=== PATIENT | male | born 1975 | race Caucasian/White ===

== ENCOUNTER 2017-08-10 12:48 | Inpatient (IN) | payer BC, SELFPAY ==
[2017-08-10] VITALS (14 sets, daily range): BP systolic 112–149; BP diastolic 60–90; PULSE 105–116; RESP 14–20; TEMP 36.5–37.7; O2SAT 96–99; BMI 40.1; BMI 39.8
--- NOTE | 2017-08-10 13:36 | RAD_ITS ---
STUDY: X-RAY CHEST REASON FOR EXAM: Male, 42 years old. Weakness. Shortness of breath. Headaches. TECHNIQUE: Single AP portable view of the chest. COMPARISON: None. FINDINGS: EKG electrodes are seen. The lungs are clear and expanded. There is no demonstrated pleural abnormality. Normal size heart. Normal mediastinum and yoon. Normal visualized pulmonary arteries. Normal visualized aortic arch and descending thoracic aorta. Normal visualized thoracic spine. Normal visualized ribs, clavicles, and shoulders. There is no demonstrated abnormality of the visualized soft tissue structures of the upper abdomen. RAD/Chest 1 View (Portable) IMPRESSION: Normal x-ray examination of the chest. Electronically Signed: Raymundo Sanchez MD at 14:05 EST Tel [phone], Service support ,
--- NOTE | 2017-08-10 13:39 | EKG12_ITS ---
Test Reason : PALPITATIONS Blood Pressure : / mmHG Vent. Rate : 105 BPM Atrial Rate : 105 BPM P-R Int : 180 ms QRS Dur : 112 ms QT Int : 366 ms P-R-T Axes : 056 035 026 degrees QTc Int : 483 ms Sinus tachycardia Incomplete left bundle branch block Borderline ECG Confirmed by JOCELYN HODGE ([id number]), newspaper editor managing TOM BERANL ([id number] on 08/13/2017 1:25:49 PM Referred By: GENOVEVA Confirmed By:JOCELYN HODGE
--- NOTE | 2017-08-10 13:57 | NURSING ---
NO OLD EKGS
--- NOTE | 2017-08-10 14:43 | NURSING ---
NEEDS CBCD AND CHEMISTRIES REDRAWN
[2017-08-10] MEDS: 0.9% Normal Saline 1,000 ML 1000 ML IV ×2 (14:45)
[2017-08-10 14:59] LABS: Anion Gap 20 (5-15); BUN 14 mg/dL (7-18); BUN/Creat Ratio 10.3 RATIO (10-20); Calcium,Total 7.9 mg/dL (8.5-10.1); Chloride 100 mmol/L (98-107); Creatinine, Serum 1.36 mg/dL (0.70-1.30); EST Glomerular Filtration Rate 61 mL/min (>60); Est Glom Filt Rate - Afr Amer 74 mL/min (>60); Estimated Creatinine Clearance 66.83 ml/min; Glucose 453 mg/dL (70-110); Potassium 4.8 mmol/L (3.5-5.1); Sodium Level 123 mmol/L (136-145)
[2017-08-10 15:26] LABS: Blood Gas Specimen Type VEN; O2 Delivery Device Room Air; Time Given 1518; VBG BASE EXCESS -26 mmol/L (-1.0-3.5); VBG Bicarbonate 5 mmol/L (22-26); VBG Oxygen Content 5 mmol/L (23-33); VBG PO2 70 mmHg (25-40); VBG SO2 85 % (50-70); VBG pCO2 16.3 mmHg (41-51); VBG pH 7.05 (7.32-7.42)
[2017-08-10 15:44] LABS: Hematocrit 40.5 % (40-54); Hemoglobin 13.9 g/dl (13.0-16.5); Mean Corp Hgb Conc 34.3 g/gl (32-36); Mean Corpuscular Hgb 28.6 pg (27.0-32.0); Mean Corpuscular Volume 83.3 fL (80-94); Mean Platelet Vol. 8.9 fl (6.2-12.0); Platelet Count 177 K/mm3 (150-450); RBC Distribution Width CV 13.9 % (11.6-14.6); RBC Distribution Width SD 41.7 fl (35.1-43.9); Red Blood Count 4.86 M/mm3 (4.6-6.2); White Blood Count 10.1 K/mm3 (4.4-11.0)
[2017-08-10 15:48] LABS: Differential Indicated MANUAL DIFF; POSITIVE COUNT YES; POSITIVE DIFFERENTIAL NO; POSITIVE MORPHOLOGY YES
[2017-08-10 15:50] LABS: Phosphorus 2.3 mg/dL (2.5-4.9)
--- NOTE | 2017-08-10 15:54 | ED.VISSUMM ---
- ER Visit Summary Date of Service: 08/10/17 Chief Complaint: Dysuria and myalgias History of Present Illness: The patient is a 42 M with no primary care physician. He reports that he ran out of his metformin and glimepiride last week. States that 2 days ago he began not feeling well. He has been short of breath and had palpitations. He is been nauseated and vomited twice. He denies any diarrhea. He has had dysuria without frequency. He has diffuse myalgias. He has a headache that stated 10 severity. Has a history of similar headaches. Reports that he is pain-free currently and that is 10 out of 10 at worst. Also complains of generalized weakness. Physical Examination: Vitals: Stable. Afebrile. General: Well-nourished and well-developed. Head: Normocephalic atraumatic. Neck: Supple, no lymphadenopathy. No JVD. Nontender. Cardiovascular: Regular rate and rhythm. No murmurs. Respiratory: No respiratory distress. Clear to auscultation bilaterally. Abdominal: Soft, mild diffuse tenderness to palpation, nondistended, normal bowel sounds. No guarding, rebound, or peritoneal signs. Back: Nontender. Extremities: Nontender, no edema. Skin: Normal color, no rash. Neurologic: Alert and oriented ?3. Cranial nerves II through XII are intact. Normal strength and sensation. Psych: Normal affect. Test Results: CBC is normal. Chem-7 is marked for sodium 123, CO2 of 3, glucose 453, BUN 20, creatinine 1.36, calcium 7.9. Corrected sodium is 131. Troponin is negative. Phosphorus is 2.3. Magnesium is 2.0. Venous blood gas shows pH is 7.05. He has large serum ketones. Emergency Department Course and Treatment: Patient was given 2 L of normal saline. He was then started on insulin drip. Treatment Plan: Patient will be admitted to the hospital for further evaluation and treatment. Disposition: Admitted in improved condition. Impression: 1. DKA. 2. Critical care time 30 minutes. This note was generated with [employer] dictation software. It may contain incorrect words, spelling, and punctuation that were not noted in review of the chart prior to signing ED Disposition - Plan for ED Patient: Chief Complaint: General Illness Referrals: Care Physician,No Primary [Primary Care Provider] -
[2017-08-10 15:56] LABS: Bedside Glucose 399 mg/dL (70-110)
[2017-08-10 15:57] LABS: Bacteria 0 SEEN /hpf (None Seen); Mucous, Urine 0 SEEN /hpf (<or=2+); White Blood Cells 0 SEEN /hpf (0-5)
[2017-08-10 16:09] LABS: Color, Urine Yellow (Yellow); Glucose, Dipstick 1000 mg/dl (Normal); Leukocyte Esterase-Dipstick Negative /ul (Negative); Nitrite-Dipstick Negative (Negative); Occult Blood-Urine 25 /ul (Negative); Protein-Dipstick 30 mg/dl (Negative); Urine Bilirubin Dipstick Negative (Negative); Urine Clarity Clear (Clear); Urine Urobilinogen Normal (Normal)
[2017-08-10 16:19] LABS: Ketone-Dipstick 150 mg/dl (Negative)
[2017-08-10 16:25] LABS: Hyaline Cast 0-5 SEEN /lpf (0-5); Red Blood Cells-Urine 0-5 SEEN /hpf (0-5); Squamous Epithelial Cells - UA 0-5 SEEN /hpf (0-5)
[2017-08-10 16:41] LABS: Basophil 1 % (0-1); Eosinophil 1 % (0-5); Lymphocyte 10 % (19-41); Monocyte 3 % (0-10); Neutrophil-Band 5 % (0-5); Neutrophil-Segmented 80 % (47-70); Red Cell Morphology NORM C+C NORMAL (NORM C&C); Total Cells Counted 100 (MANUAL DIFF)
[2017-08-10 16:42] LABS: Platelet Estimate ADEQUATE (ADEQ)
--- NOTE | 2017-08-10 17:10 | NURSING ---
ICU DKA LAUREN
--- NOTE | 2017-08-10 17:20 | NURSING ---
ICU 5
[2017-08-10 17:41] LABS: Bedside Glucose 335 mg/dL (70-110)
--- NOTE | 2017-08-10 18:12 | PCM.HP.STD ---
Problem List (1) DKA (diabetic ketoacidoses) Status: Acute (2) Diabetes mellitus type 2 in obese Status: Acute History of Present Illness Date of Admission: 08/10/17 Chief Complaint: Ran out of medication now complaining of generalized nausea and vomiting consistent with DKA The patient is a 42 year old M with history of type 2 diabetes mellitus on metformin and glimepiride, ran out last week came to ER with generalized weakness, nausea and vomiting twice for last 2 days. Patient is having aches and pain and heartburn/acid reflux. He also has severe headache but denies abdominal pain. He never had DKA. In ER, initial lab work was consistent with DKA. BMP shows CO2 3, anion gap 20, creatinine 1.36 and venous blood gas shows pH 7.05, PCO2 mix 16. UA is negative for pyuria, nitrite or leukocyte esterase. Patient received a liter of normal saline bolus in the ER and is on insulin drip. [] Past Medical History Allergies alcohol Allergy (Verified 08/10/17 12:54) Unknown Home Medications: Ambulatory Orders Medication Instructions Recorded Glimepiride [Amaryl] 2 mg PO BID 08/10/17 Metformin HCl 1,000 mg PO BID 08/10/17 Smoking Status: Never smoker - *Family History Paternal History Items: No pertinent history Review of Systems Constitutional: Denies: Chills, Fever, Weight Change HEENT: Denies: Head Aches, Sinus Congestion, Sinus Drainage Cardiovascular: Denies: Chest Pain, Palpitations Respiratory: Denies: Cough, Shortness of breath at rest, Sputum production Gastrointestinal: Denies: Abdominal Pain, Nausea, Vomiting Genitourinary: Denies: Dysuria Musculoskeletal: Denies: Joint Pain, Joint Tenderness Skin: Denies: Rash, Wounds Neurological: Denies: Numbness, Tingling, Focal weakness Psychiatric: Denies: Anxiety, Depression, Homicidal Ideations, Suicidal Ideations Hematologic/ Lymphatic: Denies: Easy Bruising, Easy Bleeding VTE Information - Inpt Only VTE Present on Admission: No VTE Mechan Device Prophylaxis: SCD's VTE Pharm Prophylaxis ordered?: Yes Patient Problems: Active and Suspected Problems DKA (diabetic ketoacidoses) (Acute) Diabetes mellitus type 2 in obese (Acute) - Physical Exam General: Alert, Oriented x3, Cooperative HEENT: Atraumatic, PERRLA, EOMI, Normocephalic Oral: Dry Mucosa Neck: Supple, No JVD, Negative Carotid Bruits Lungs: Clear to auscultation, No rhonchi, No wheeze, No rales, Diminished Cardiovascular: Regular rate, Regular Rhythm, Normal S1, Normal S2, No murmurs Abdomen: Bowel Sounds Present, Soft, Non Tender, Non-Distended Extremities: No edema, Capillary Refill Less than 3 Seconds Skin: No rashes, No breakdown Musculoskeletal: No Tenderness to Palpation of Joints or Extremities Neurological: Cranial nerves II-XII grossly intact, Neuro grossly intact Psych/Mental Status: Normal Affect, Appropriate Vital Signs Temp Pulse Resp BP Pulse Ox 97.7 F L 111 H 19 H 149/77 H 97 08/10/17 12:51 08/10/17 17:19 08/10/17 17:19 08/10/17 17:19 08/10/17 17:19 Finger Stick Blood Glucose 343 POC Glucose 08/10/17 17:25 POC Glucose 335 H Assessment/Plan Active and Suspected Problems DKA (diabetic ketoacidoses) (Acute) Diabetes mellitus type 2 in obese (Acute) The patient is a 42 year old M with history of type 2 diabetes mellitus on metformin and glimepiride, ran out last week came to ER with generalized weakness, nausea and vomiting twice for last 2 days. Patient is having aches and pain and heartburn/acid reflux. He also has severe headache but denies abdominal pain. He never had DKA. In ER, initial lab work was consistent with DKA. BMP shows CO2 3, anion gap 20, creatinine 1.36 and venous blood gas shows pH 7.05, PCO2 mix 16. UA is negative for pyuria, nitrite or leukocyte esterase. Patient received a liter of normal saline bolus in the ER and is on insulin drip. 1. DKA secondary to noncompliance/ran out of medication: Patient is being admitted in ICU. On DKA protocol with BMP every 4 hourly, repeat venous blood gas, IV fluid normal saline bolus and electrolyte replacement as per protocol. Large serum acetone. Serum estrone tomorrow morning. 2. Mixed acid base disorder with severe metabolic acidosis with high anion gap and respiratory acidosis: Venous blood gas shows 7.05, PCO2 mix 16. If repeat venous blood gas does not improve, need Na bicarb 50 mEq IV push. Consult audio video repairer. For now IV fluid normal saline bolus and insulin drip. 3. Heartburn/acid reflux with atypical chest pain: EKG was done in the ER shows sinus tachycardia at 105 bpm with incomplete left bundle branch block. First troponin is negative. Serial troponin enzymes. Repeat EKG. On IV Protonix 40 mg daily. Type 2 diabetes mellitus, morbid obesity: Patient denies history of sleep apnea or snoring. BMI is 40.1 KG/meter square. Diet counseling. Deputy Commissioner consult. A1c tomorrow a.m. DVT prophylaxis: On Lovenox 40 mg subcu daily and bilateral SCDs. Critical time spent about 45 minutes. This note was generated with [email or web address] dictation software. Every effort was made to ensure accuracy, however computerized asset specialist mistakes may persist. Code Visit Inpatient E&M: 54018 Subs Hosp L3 Procedures: 59638 Critial Care 1st Hr
--- NOTE | 2017-08-10 18:26 | HP.PCM_ITS ---
Problem List (1) DKA (diabetic ketoacidoses) Status: Acute (2) Diabetes mellitus type 2 in obese Status: Acute History of Present Illness Date of Admission: 08/10/17 Chief Complaint: Ran out of medication now complaining of generalized nausea and vomiting consistent with DKA The patient is a 42 year old M with history of type 2 diabetes mellitus on metformin and glimepiride, ran out last week came to ER with generalized weakness, nausea and vomiting twice for last 2 days. Patient is having aches and pain and heartburn/acid reflux. He also has severe headache but denies abdominal pain. He never had DKA. In ER, initial lab work was consistent with DKA. BMP shows CO2 3, anion gap 20 , creatinine 1.36 and venous blood gas shows pH 7.05, PCO2 mix 16. UA is negative for pyuria, nitrite or leukocyte esterase. Patient received a liter of normal saline bolus in the ER and is on insulin drip. [] Past Medical History Allergies alcohol Allergy (Verified 08/10/17 12:54) Unknown Home Medications: Ambulatory Orders Medication Instructions Recorded Glimepiride [Amaryl] 2 mg PO BID 08/10/17 Metformin HCl 1,000 mg PO BID 08/10/17 Smoking Status: Never smoker - *Family History Paternal History Items: No pertinent history Review of Systems Constitutional: Denies: Chills, Fever, Weight Change HEENT: Denies: Head Aches, Sinus Congestion, Sinus Drainage Cardiovascular: Denies: Chest Pain, Palpitations Respiratory: Denies: Cough, Shortness of breath at rest, Sputum production Gastrointestinal: Denies: Abdominal Pain, Nausea, Vomiting Genitourinary: Denies: Dysuria Musculoskeletal: Denies: Joint Pain, Joint Tenderness Skin: Denies: Rash, Wounds Neurological: Denies: Numbness, Tingling, Focal weakness Psychiatric: Denies: Anxiety, Depression, Homicidal Ideations, Suicidal Ideations Hematologic/ Lymphatic: Denies: Easy Bruising, Easy Bleeding VTE Information - Inpt Only VTE Present on Admission: No VTE Mechan Device Prophylaxis: SCD's VTE Pharm Prophylaxis ordered?: Yes Patient Problems: Active and Suspected Problems DKA (diabetic ketoacidoses) (Acute) Diabetes mellitus type 2 in obese (Acute) - Physical Exam General: Alert, Oriented x3, Cooperative HEENT: Atraumatic, PERRLA, EOMI, Normocephalic Oral: Dry Mucosa Neck: Supple, No JVD, Negative Carotid Bruits Lungs: Clear to auscultation, No rhonchi, No wheeze, No rales, Diminished Cardiovascular: Regular rate, Regular Rhythm, Normal S1, Normal S2, No murmurs Abdomen: Bowel Sounds Present, Soft, Non Tender, Non-Distended Extremities: No edema, Capillary Refill Less than 3 Seconds Skin: No rashes, No breakdown Musculoskeletal: No Tenderness to Palpation of Joints or Extremities Neurological: Cranial nerves II-XII grossly intact, Neuro grossly intact Psych/Mental Status: Normal Affect, Appropriate Vital Signs Temp Pulse Resp BP Pulse Ox 97.7 F L 111 H 19 H 149/77 H 97 08/10/17 12:51 08/10/17 17:19 08/10/17 17:19 08/10/17 17:19 08/10/17 17:19 Finger Stick Blood Glucose 343 POC Glucose 08/10/17 17:25 POC Glucose 335 H Assessment/Plan Active and Suspected Problems DKA (diabetic ketoacidoses) (Acute) Diabetes mellitus type 2 in obese (Acute) The patient is a 42 year old M with history of type 2 diabetes mellitus on metformin and glimepiride, ran out last week came to ER with generalized weakness, nausea and vomiting twice for last 2 days. Patient is having aches and pain and heartburn/acid reflux. He also has severe headache but denies abdominal pain. He never had DKA. In ER, initial lab work was consistent with DKA. BMP shows CO2 3, anion gap 20 , creatinine 1.36 and venous blood gas shows pH 7.05, PCO2 mix 16. UA is negative for pyuria, nitrite or leukocyte esterase. Patient received a liter of normal saline bolus in the ER and is on insulin drip. 1. DKA secondary to noncompliance/ran out of medication: Patient is being admitted in ICU. On DKA protocol with BMP every 4 hourly, repeat venous blood gas, IV fluid normal saline bolus and electrolyte replacement as per protocol. Large serum acetone. Serum estrone tomorrow morning. 2. Mixed acid base disorder with severe metabolic acidosis with high anion gap and respiratory acidosis: Venous blood gas shows 7.05, PCO2 mix 16. If repeat venous blood gas does not improve, need Na bicarb 50 mEq IV push. Consult [employer]. For now IV fluid normal saline bolus and insulin drip. 3. Heartburn/acid reflux with atypical chest pain: EKG was done in the ER shows sinus tachycardia at 105 bpm with incomplete left bundle branch block. First troponin is negative. Serial troponin enzymes. Repeat EKG. On IV Protonix 40 mg daily. Type 2 diabetes mellitus, morbid obesity: Patient denies history of sleep apnea or snoring. BMI is 40.1 KG/meter square. Diet counseling. Sheet Rock Taper Helper consult. A1c tomorrow a.m. DVT prophylaxis: On Lovenox 40 mg subcu daily and bilateral SCDs. Critical time spent about 45 minutes. This note was generated with [employer] dictation software. Every effort was made to ensure accuracy, however computerized plant custodian mistakes may persist. Code Visit Inpatient E&M: 97474 Subs Hosp L3 Procedures: 54755 Critial Care 1st Hr
[2017-08-10] MEDS: 0.9% Normal Saline 1,000 ML 250 ML IV (19:00)
--- NOTE | 2017-08-10 19:20 | NURSING ---
Insulin gtt running at 5.6 u/hr upon first assessment. Bedside report received from previous shift RN stating insulin gtt should be running at 5.6u/hr down 4u/hr from previous setting pre protocol.
[2017-08-10 20:07] LABS: Bedside Glucose 237 mg/dL (70-110)
[2017-08-10 20:07] LABS: Bedside Glucose 274 mg/dL (70-110)
--- NOTE | 2017-08-10 21:12 | PCM.OP.BLANK ---
Problem List (1) DKA (diabetic ketoacidoses) Status: Acute (2) Diabetes mellitus type 2 in obese Status: Acute (3) Poor peripheral vein access Status: Acute Operative Report Date of Procedure: 08/10/17 Right femoral central venous triple-lumen catheter insertion Indication Poor peripheral vein access Nurse called me as the nurses cannot draw blood and insufficient only one peripheral vein access or IV fluid. Need 1 more venous access. Procedure With informed consent from the patient the procedure was explained including risk and benefit. Under sterilized precaution, first right neck region was sterilized and draped. As the patient is a heavy built, morbid obesity was unable to get right subclavian access in 3 attempts so it was QUIT. No hematoma/bleeding. Right groin region was sterilized and draped. Right femoral region was numbed with lidocaine 2%. Right femoral vein was accessed in 1 attempt. With linear technique, the guidewire, right femoral vein triple-lumen catheter was inserted. Catheter was secured and dressed. Good venous return and blood flow from all 3 ports. Dressing was completed. No hematoma. The right femoral central venous catheter is ready to be used. Code Visit Procedures: 60484 Insert Non-tunnel CV Cath
[2017-08-10 21:16] LABS: M R Staph aureus DNA By PCR Negative (Negative); Probe Check PASS; Specimen Processing Control PASS
[2017-08-10 22:15] LABS: Osmolality, Serum 296 mOsm/KG (275-295)
[2017-08-10 22:34] LABS: Alanine Aminotransfer ALT/SGPT 25 U/L (12-78); Alkaline Phosphatase 89 U/L (45-117); Anion Gap 16 (5-15); BUN 13 mg/dL (7-18); BUN/Creat Ratio 11.2 RATIO (10-20); Bilirubin, Direct < 0.05 mg/dL (0.00-0.30); Calcium,Total 7.6 mg/dL (8.5-10.1); Chloride 110 mmol/L (98-107); Creatinine, Serum 1.16 mg/dL (0.70-1.30); EST Glomerular Filtration Rate 74 mL/min (>60); Est Glom Filt Rate - Afr Amer 89 mL/min (>60); Estimated Creatinine Clearance 78.35 ml/min; Globulin 3.6 g/dL (2.2-4.2); Glucose 200 mg/dL (70-110); Magnesium 1.8 mg/dL (1.6-2.6); Protein, Total 6.6 g/dL (6.4-8.2); Sodium Level 137 mmol/L (136-145)
[2017-08-10 22:36] LABS: AST(SGOT) 12 U/L (15-37)
[2017-08-10 23:21] LABS: Bedside Glucose 189 mg/dL (70-110)
[2017-08-10 23:21] LABS: Bedside Glucose 216 mg/dL (70-110)
[2017-08-11] VITALS (16 sets, daily range): BP systolic 104–133; BP diastolic 58–74; PULSE 90–111; RESP 14–20; TEMP 36.9–37.2; O2SAT 93–100
[2017-08-11 00:36] LABS: Bedside Glucose 193 mg/dL (70-110)
[2017-08-11 00:36] LABS: Bedside Glucose 172 mg/dL (70-110)
[2017-08-11 03:22] LABS: Anion Gap 14 (5-15); BUN 11 mg/dL (7-18); BUN/Creat Ratio 9.9 RATIO (10-20); Calcium,Total 7.7 mg/dL (8.5-10.1); Chloride 110 mmol/L (98-107); Creatinine, Serum 1.11 mg/dL (0.70-1.30); EST Glomerular Filtration Rate 77 mL/min (>60); Est Glom Filt Rate - Afr Amer 94 mL/min (>60); Estimated Creatinine Clearance 81.88 ml/min; Glucose 225 mg/dL (70-110); Potassium 2.9 mmol/L (3.5-5.1); Sodium Level 136 mmol/L (136-145)
[2017-08-11 03:33] LABS: Absolute Lymphocyte Count 1.01 X10^3/ul (0.83-4.51); Absolute Neutrophil Count 8.6 X10^3/uL (2.0-7.7); Lymphocyte # 1.01 X10^3/ul (4.0)
[2017-08-11 04:24] LABS: Hematocrit 32.9 % (40-54); Hemoglobin 11.9 g/dl (13.0-16.5); Mean Corp Hgb Conc 36.2 g/gl (32-36); Mean Corpuscular Hgb 29.4 pg (27.0-32.0); Mean Corpuscular Volume 81.2 fL (80-94); Mean Platelet Vol. 8.5 fl (6.2-12.0); Platelet Count 154 K/mm3 (150-450); RBC Distribution Width CV 13.7 % (11.6-14.6); RBC Distribution Width SD 39.8 fl (35.1-43.9); Red Blood Count 4.05 M/mm3 (4.6-6.2)
[2017-08-11 04:26] LABS: Bedside Glucose 221 mg/dL (70-110)
[2017-08-11 04:33] LABS: Differential Indicated MANUAL DIFF; POSITIVE COUNT YES; POSITIVE DIFFERENTIAL NO; POSITIVE MORPHOLOGY YES
[2017-08-11 04:46] LABS: Absolute Lymphocyte Count 0.77 X10^3/ul (0.83-4.51); Absolute Neutrophil Count 4.4 X10^3/uL (2.0-7.7); Eosinophil 2 % (0-5); Lymphocyte 13 % (19-41); Lymphocyte # 0.77 X10^3/ul (4.0); Metamyelocyte 2 % (0-1); Monocyte 10 % (0-10); Neutrophil # 4.37 X10^3/uL (2.7-7.7); Neutrophil-Band 2 % (0-5); Neutrophil-Segmented 71 % (47-70); Platelet Estimate ADEQUATE (ADEQ); Red Cell Morphology NORM C+C NORMAL (NORM C&C); Total Cells Counted 100 (MANUAL DIFF)
[2017-08-11] MEDS: Enoxaparin 40 MG/0.4 ML Syringe SC (06:16)
[2017-08-11 06:31] LABS: Bedside Glucose 224 mg/dL (70-110)
[2017-08-11 07:05] LABS: Anion Gap 13 (5-15); BUN 10 mg/dL (7-18); BUN/Creat Ratio 9.1 RATIO (10-20); Calcium,Total 7.8 mg/dL (8.5-10.1); Chloride 111 mmol/L (98-107); EST Glomerular Filtration Rate 78 mL/min (>60); Est Glom Filt Rate - Afr Amer 95 mL/min (>60); Estimated Creatinine Clearance 82.63 ml/min; Glucose 215 mg/dL (70-110); Potassium 2.8 mmol/L (3.5-5.1); Sodium Level 136 mmol/L (136-145)
[2017-08-11 07:31] LABS: Bedside Glucose 200 mg/dL (70-110)
[2017-08-11 07:46] LABS: Bedside Glucose 207 mg/dL (70-110)
[2017-08-11 07:46] LABS: Bedside Glucose 208 mg/dL (70-110)
[2017-08-11 08:13] LABS: Magnesium 1.8 mg/dL (1.6-2.6)
[2017-08-11 08:17] LABS: Bedside Glucose 195 mg/dL (70-110)
--- NOTE | 2017-08-11 08:57 | PCM.PN.HOSP ---
Patient Problems: Active and Suspected Problems DKA (diabetic ketoacidoses) (Acute) Diabetes mellitus type 2 in obese (Acute) Poor peripheral vein access (Acute) Subjective: Feeling better overall but still just has diffuse myalgias. Vitals/I&O's: Vital Signs Temp Pulse Resp BP Pulse Ox 37.2 C 100 18 118/66 93 08/11/17 08:00 08/11/17 08:00 08/11/17 08:00 08/11/17 08:00 08/11/17 08:00 Oxygen Delivery Method Room Air Weight: 117.2 kg Body Mass Index (BMI) 39.8 Finger Stick Blood Glucose 225 Intake and Output for Last 24 Hours 08/09/17 08/10/17 08/11/17 23:59 23:59 23:59 Intake Total 2211 / 2211 Output Total 975 / 975 Balance 1236 / 1236 General: Alert, Cooperative HEENT: Atraumatic, Normocephalic Neck: No Nodes, Thyroid Normal Size and Texture Lungs: Clear to auscultation, Normal air movement, No rhonchi, No wheeze Cardiovascular: Regular rate, Regular Rhythm, Normal S1, Normal S2 Abdomen: Bowel Sounds Present, Soft, Non Tender, Non-Distended, Obese Extremities: No edema, No Calf Tenderness Laboratory Results 08/10/17 17:25: POC Glucose 335 H 08/10/17 18:00: MRSA (PCR) Negative 08/10/17 18:00: MRSA (PCR) Cancelled 08/10/17 18:25: POC Glucose 274 H 08/10/17 18:30: Magnesium Cancelled, Total Bilirubin Cancelled, Direct Bilirubin Cancelled, AST Cancelled, ALT Cancelled, Alkaline Phosphatase Cancelled, Total Protein Cancelled, Albumin Cancelled, Globulin Cancelled 08/10/17 18:30: Serum Osmolality Cancelled 08/10/17 18:30: Sodium Cancelled, Potassium Cancelled, Chloride Cancelled, Carbon Dioxide Cancelled, Anion Gap Cancelled, BUN Cancelled, Creatinine Cancelled, Estim Creat Clear Calc Cancelled, Est GFR (MDRD) Af Amer Cancelled, Est GFR (MDRD) Non-Af Cancelled, BUN/Creatinine Ratio Cancelled, Glucose Cancelled, Calcium Cancelled 08/10/17 18:30: Troponin I Cancelled 08/10/17 19:20: POC Glucose 237 H 08/10/17 20:04: POC Glucose 216 H 08/10/17 21:38: POC Glucose 189 H 08/10/17 21:45: Sodium Cancelled, Potassium Cancelled, Chloride Cancelled, Carbon Dioxide Cancelled, Anion Gap Cancelled, BUN Cancelled, Creatinine Cancelled, Estim Creat Clear Calc Cancelled, Est GFR (MDRD) Af Amer Cancelled, Est GFR (MDRD) Non-Af Cancelled, BUN/Creatinine Ratio Cancelled, Glucose Cancelled, Calcium Cancelled 08/10/17 21:45: Troponin I Cancelled 08/10/17 21:45: Sodium 137, Potassium 3.0 L, Chloride 110 H, Carbon Dioxide 11.0 L, Anion Gap 16 H, BUN 13, Creatinine 1.16, Estim Creat Clear Calc 78.35, Est GFR (MDRD) Af Amer 89, Est GFR (MDRD) Non-Af 74, BUN/Creatinine Ratio 11.2, Glucose 200 H, Calcium 7.6 L, Magnesium 1.8, Total Bilirubin 0.40, Direct Bilirubin < 0.05, AST 12 L, ALT 25, Alkaline Phosphatase 89, Troponin I < 0.02, Total Protein 6.6, Albumin 3.0 L, Globulin 3.6 08/10/17 21:45: Serum Osmolality 296 H 08/10/17 23:18: POC Glucose 172 H 08/11/17 00:32: POC Glucose 193 H 08/11/17 01:25: POC Glucose 208 H 08/11/17 01:26: POC Glucose 207 H 08/11/17 02:45: Sodium 136, Potassium 2.9 L, Chloride 110 H, Carbon Dioxide 12.0 L, Anion Gap 14, BUN 11, Creatinine 1.11, Estim Creat Clear Calc 81.88, Est GFR (MDRD) Af Amer 94, Est GFR (MDRD) Non-Af 77, BUN/Creatinine Ratio 9.9 L, Glucose 225 H, Calcium 7.7 L 08/11/17 04:10: Acetone Level SMALL H 08/11/17 04:10: WBC 6.0, RBC 4.05 L, Hgb 11.9 L, Hct 32.9 L, MCV 81.2, MCH 29.4, MCHC 36.2 H, RDW 13.7, RDW Differential 39.8, Plt Count 154, MPV 8.5, Neut % (Auto) Not Reportable, Absolute Neuts (auto) 4.4, Absolute Lymphs (auto) 0.77 L, Total Counted 100, Neutrophils % (Manual) 71 H, Band Neutrophils % 2, Lymphocytes % (Manual) 13 L, Monocytes % (Manual) 10, Eosinophils % (Manual) 2, Metamyelocytes % 2 H, Diff Path Review November, Platelet Estimate ADEQUATE, RBC Morphology NORM C+C 08/11/17 04:10: Hemoglobin A1c Pending 08/11/17 04:10: Troponin I < 0.02 08/11/17 04:11: POC Glucose 221 H 08/11/17 06:12: POC Glucose 224 H 08/11/17 06:45: Sodium 136, Potassium 2.8 L, Chloride 111 H, Carbon Dioxide 12.0 L, Anion Gap 13, BUN 10, Creatinine 1.10, Estim Creat Clear Calc 82.63, Est GFR (MDRD) Af Amer 95, Est GFR (MDRD) Non-Af 78, BUN/Creatinine Ratio 9.1 L, Glucose 215 H, Calcium 7.8 L 08/11/17 06:45: Magnesium 1.8 08/11/17 07:21: POC Glucose 200 H 08/11/17 08:08: POC Glucose 195 H Current Medications Dextrose (D50w Syringe) 0 gm IV X1 PRN; Protocol PRN Reason: HYPOGLYCEMIA Dextrose (D50w Syringe) 0 gm IV X1 PRN; Protocol PRN Reason: Hypoglycemia Enoxaparin Sodium (Lovenox) 40 mg SC DAILY@0600 [facility] Last Admin: 08/11/17 06:16 Dose: 40 mg Glucagon () 1 mg IM .X1 PRN PRN Reason: Hypoglycemia Pantoprazole Sodium 40 mg/ (Sodium Chloride) 110 mls @ 330 mls/hr IV Q24 [facility] Potassium Chloride/Dextrose/Sod Cl (Kcl 20meq In D5.45ns 1000ml) 1,000 mls @ 100 mls/hr IV .Q10H [facility] Last Admin: 08/10/17 23:30 Dose: 100 mls/hr Insulin Aspart (Novolog Flexpen (Bkc)) 5 units SC TIDAC [facility] Potassium Chloride (K-Dur) 40 meq PO BIDCM [facility] Sodium Chloride () 5 - 30 ml IV UD PRN PRN Reason: SALINE FLUSH Assessment/Plan Active and Suspected Problems DKA (diabetic ketoacidoses) (Acute) Diabetes mellitus type 2 in obese (Acute) Poor peripheral vein access (Acute) 1. diabetic ketoacidosis Gap is closed. Patient will be started on Levemir plus prandial NovoLog. Patient stated that he ran out of his oral medications about a week ago. However, patient had a recent hemoglobin A1c of over 11, while he was taking his medications. I told the patient that the oral medications are insufficient for him at this time. I have recommended insulin for him. Told him that possibly, with proper diet and exercise, that he could be able to come off the insulin but that will be determined at a later time. 2. Hypokalemia Continue to replace. Patient will be reevaluated this afternoon and if doing better then I would be able to anticipate patient being discharged today.
--- NOTE | 2017-08-11 09:00 | PN_ITS ---
Patient Problems: Active and Suspected Problems DKA (diabetic ketoacidoses) (Acute) Diabetes mellitus type 2 in obese (Acute) Poor peripheral vein access (Acute) Subjective: Feeling better overall but still just has diffuse myalgias. Vitals/I&O's: Vital Signs Temp Pulse Resp BP Pulse Ox 37.2 C 100 18 118/66 93 08/11/17 08:00 08/11/17 08:00 08/11/17 08:00 08/11/17 08:00 08/11/17 08:00 Oxygen Delivery Method Room Air Weight: 117.2 kg Body Mass Index (BMI) 39.8 Finger Stick Blood Glucose 225 Intake and Output for Last 24 Hours 08/09/17 08/10/17 08/11/17 23:59 23:59 23:59 Intake Total 2211 / 2211 Output Total 975 / 975 Balance 1236 / 1236 General: Alert, Cooperative HEENT: Atraumatic, Normocephalic Neck: No Nodes, Thyroid Normal Size and Texture Lungs: Clear to auscultation, Normal air movement, No rhonchi, No wheeze Cardiovascular: Regular rate, Regular Rhythm, Normal S1, Normal S2 Abdomen: Bowel Sounds Present, Soft, Non Tender, Non-Distended, Obese Extremities: No edema, No Calf Tenderness Laboratory Results 08/10/17 17:25: POC Glucose 335 H 08/10/17 18:00: MRSA (PCR) Negative 08/10/17 18:00: MRSA (PCR) Cancelled 08/10/17 18:25: POC Glucose 274 H 08/10/17 18:30: Magnesium Cancelled, Total Bilirubin Cancelled, Direct Bilirubin Cancelled, AST Cancelled, ALT Cancelled, Alkaline Phosphatase Cancelled, Total Protein Cancelled, Albumin Cancelled, Globulin Cancelled 08/10/17 18:30: Serum Osmolality Cancelled 08/10/17 18:30: Sodium Cancelled, Potassium Cancelled, Chloride Cancelled, Carbon Dioxide Cancelled, Anion Gap Cancelled, BUN Cancelled, Creatinine Cancelled, Estim Creat Clear Calc Cancelled, Est GFR (MDRD) Af Amer Cancelled, Est GFR (MDRD) Non-Af Cancelled, BUN/Creatinine Ratio Cancelled, Glucose Cancelled, Calcium Cancelled 08/10/17 18:30: Troponin I Cancelled 08/10/17 19:20: POC Glucose 237 H 08/10/17 20:04: POC Glucose 216 H 08/10/17 21:38: POC Glucose 189 H 08/10/17 21:45: Sodium Cancelled, Potassium Cancelled, Chloride Cancelled, Carbon Dioxide Cancelled, Anion Gap Cancelled, BUN Cancelled, Creatinine Cancelled, Estim Creat Clear Calc Cancelled, Est GFR (MDRD) Af Amer Cancelled, Est GFR (MDRD) Non-Af Cancelled, BUN/Creatinine Ratio Cancelled, Glucose Cancelled, Calcium Cancelled 08/10/17 21:45: Troponin I Cancelled 08/10/17 21:45: Sodium 137, Potassium 3.0 L, Chloride 110 H, Carbon Dioxide 11.0 L, Anion Gap 16 H, BUN 13, Creatinine 1.16, Estim Creat Clear Calc 78.35, Est GFR (MDRD) Af Amer 89, Est GFR (MDRD) Non-Af 74, BUN/Creatinine Ratio 11.2, Glucose 200 H, Calcium 7.6 L, Magnesium 1.8, Total Bilirubin 0.40, Direct Bilirubin < 0.05, AST 12 L, ALT 25, Alkaline Phosphatase 89, Troponin I < 0.02, Total Protein 6.6, Albumin 3.0 L, Globulin 3.6 08/10/17 21:45: Serum Osmolality 296 H 08/10/17 23:18: POC Glucose 172 H 08/11/17 00:32: POC Glucose 193 H 08/11/17 01:25: POC Glucose 208 H 08/11/17 01:26: POC Glucose 207 H 08/11/17 02:45: Sodium 136, Potassium 2.9 L, Chloride 110 H, Carbon Dioxide 12.0 L, Anion Gap 14, BUN 11, Creatinine 1.11, Estim Creat Clear Calc 81.88, Est GFR (MDRD) Af Amer 94, Est GFR (MDRD) Non-Af 77, BUN/Creatinine Ratio 9.9 L , Glucose 225 H, Calcium 7.7 L 08/11/17 04:10: Acetone Level SMALL H 08/11/17 04:10: WBC 6.0, RBC 4.05 L, Hgb 11.9 L, Hct 32.9 L, MCV 81.2, MCH 29.4 , MCHC 36.2 H, RDW 13.7, RDW Differential 39.8, Plt Count 154, MPV 8.5, Neut % ( Auto) Not Reportable, Absolute Neuts (auto) 4.4, Absolute Lymphs (auto) 0.77 L, Total Counted 100, Neutrophils % (Manual) 71 H, Band Neutrophils % 2, Lymphocytes % (Manual) 13 L, Monocytes % (Manual) 10, Eosinophils % (Manual) 2, Metamyelocytes % 2 H, Diff Path Review November, Platelet Estimate ADEQUATE, RBC Morphology NORM C+C 08/11/17 04:10: Hemoglobin A1c Pending 08/11/17 04:10: Troponin I < 0.02 08/11/17 04:11: POC Glucose 221 H 08/11/17 06:12: POC Glucose 224 H 08/11/17 06:45: Sodium 136, Potassium 2.8 L, Chloride 111 H, Carbon Dioxide 12.0 L, Anion Gap 13, BUN 10, Creatinine 1.10, Estim Creat Clear Calc 82.63, Est GFR (MDRD) Af Amer 95, Est GFR (MDRD) Non-Af 78, BUN/Creatinine Ratio 9.1 L , Glucose 215 H, Calcium 7.8 L 08/11/17 06:45: Magnesium 1.8 08/11/17 07:21: POC Glucose 200 H 08/11/17 08:08: POC Glucose 195 H Current Medications Dextrose (D50w Syringe) 0 gm IV X1 PRN; Protocol PRN Reason: HYPOGLYCEMIA Dextrose (D50w Syringe) 0 gm IV X1 PRN; Protocol PRN Reason: Hypoglycemia Enoxaparin Sodium (Lovenox) 40 mg SC DAILY@0600 [facility] Last Admin: 08/11/17 06:16 Dose: 40 mg Glucagon () 1 mg IM .X1 PRN PRN Reason: Hypoglycemia Pantoprazole Sodium 40 mg/ (Sodium Chloride) 110 mls @ 330 mls/hr IV Q24 [facility] Potassium Chloride/Dextrose/Sod Cl (Kcl 20meq In D5.45ns 1000ml) 1,000 mls @ 100 mls/hr IV .Q10H [facility] Last Admin: 08/10/17 23:30 Dose: 100 mls/hr Insulin Aspart (Novolog Flexpen (Bkc)) 5 units SC TIDAC [facility] Potassium Chloride (K-Dur) 40 meq PO BIDCM [facility] Sodium Chloride () 5 - 30 ml IV UD PRN PRN Reason: SALINE FLUSH Assessment/Plan Active and Suspected Problems DKA (diabetic ketoacidoses) (Acute) Diabetes mellitus type 2 in obese (Acute) Poor peripheral vein access (Acute) 1. diabetic ketoacidosis Gap is closed. Patient will be started on Levemir plus prandial NovoLog. Patient stated that he ran out of his oral medications about a week ago. However, patient had a recent hemoglobin A1c of over 11, while he was taking his medications. I told the patient that the oral medications are insufficient for him at this time. I have recommended insulin for him. Told him that possibly, with proper diet and exercise, that he could be able to come off the insulin but that will be determined at a later time. 2. Hypokalemia Continue to replace. Patient will be reevaluated this afternoon and if doing better then I would be able to anticipate patient being discharged today.
[2017-08-11 09:04] LABS: Hemoglobin A1c 11.9 % (4.2-6.3)
[2017-08-11 09:11] LABS: Bedside Glucose 195 mg/dL (70-110)
[2017-08-11] MEDS: 0.9% NaCl Peripheral Flush Adult/Peds IV ×2 (10:27→15:20)
[2017-08-11 12:22] LABS: Bedside Glucose 255 mg/dL (70-110)
[2017-08-11 13:05] LABS: Pathologist Review Reviewed
[2017-08-11 13:07] LABS: Pathologist Review Reviewed
[2017-08-11 14:24] LABS: Anion Gap 13 (5-15); BUN 10 mg/dL (7-18); BUN/Creat Ratio 9.6 RATIO (10-20); Calcium,Total 7.8 mg/dL (8.5-10.1); Chloride 110 mmol/L (98-107); Creatinine, Serum 1.04 mg/dL (0.70-1.30); EST Glomerular Filtration Rate 83 mL/min (>60); Est Glom Filt Rate - Afr Amer 101 mL/min (>60); Estimated Creatinine Clearance 87.39 ml/min; Glucose 275 mg/dL (70-110); Potassium 2.9 mmol/L (3.5-5.1); Sodium Level 137 mmol/L (136-145)
[2017-08-11 15:50] LABS: Bedside Glucose 231 mg/dL (70-110)
--- NOTE | 2017-08-11 16:00 | PCM.DC ---
- Discharge Diagnoses Current Active Problems: Current Active and Chronic Problems DKA (diabetic ketoacidoses) (Acute) Diabetes mellitus type 2 in obese (Acute) Poor peripheral vein access (Acute) You will use the following diet at home:: Calorie/Carbohydrate Controlled (specify 1200, 1400, etc) - 1800 kcal/day Your food should be the consistency of: Regular Your liquids should be the consistency of: Regular/Thin Call your doctor if you observe: Fever of 101 or Higher Instructions: What Is Type 2 Diabetes?, How to Check Your Blood Sugar, Using Injected Insulin, Types of Insulin, Healthy Meals for Diabetes, Diabetes: Understanding Carbohydrates, Eating Out When You Have Diabetes, Exercise to Manage Your Blood Sugar, Diabetes: Keeping Feet Healthy, Diabetes: Inspecting Your Feet, Diabetes: Shopping for and Preparing Meals, Diabetes: Caring for Your Body, Diabetes: Sick-Day Plan, Diabetes: The Benefits of Exercise, Diabetes: Activity Tips, Diabetes: Understanding Carbohydrates, Fats, and Protein, A1C Allergies/Adverse Reactions: Allergies alcohol Allergy (Verified 08/10/17 18:21) Unknown red in the face and hives Medications to take at Discharge Insulin Aspart [Novolog Flexpen] 5 units SC TIDAC #30 flexpen 08/11/17 Insulin Detemir [Levemir (BKC)] 20 units SC DAILY #1 flexpen 08/11/17 Lancets/Blood Glucose Strips [Fora [id number] Strp-Lnct] 1 [facility] #100 combo..pkg 08/11/17 [place], Insulin Disposable [Novofine Autocover 30G Needle] [address] [facility]. UD #1 box 08/11/17 Potassium Chloride [K-Dur] 40 meq PO BIDCM #8 tab 08/11/17 The following prescriptions were given: Insulin Aspart [Novolog Flexpen] 5 units SC TIDAC #30 flexpen Insulin Detemir [Levemir (BKC)] 20 units SC DAILY #1 flexpen [place], Insulin Disposable [Novofine Autocover 30G Needle] 1 [facility]. UD #1 box Potassium Chloride [K-Dur] 40 meq PO BIDCM #8 tab Lancets/Blood Glucose Strips [Fora [id number] Strp-Lnct] 1 [facility] #100 combo..pkg Orders to be completed after discharge: Glucometer Location: None Selected Primary Care Physician: Care Physician,No Primary [Primary Care Provider] - Please Follow Up With: Mona Power NP-C - Endocrinology When: 2-3 weeks Proposed Discharge Date: 08/11/17
--- NOTE | 2017-08-11 16:03 | DCINST_ITS ---
- Discharge Diagnoses Current Active Problems: Current Active and Chronic Problems DKA (diabetic ketoacidoses) (Acute) Diabetes mellitus type 2 in obese (Acute) Poor peripheral vein access (Acute) You will use the following diet at home:: Calorie/Carbohydrate Controlled ( specify 1200, 1400, etc) - 1800 kcal/day Your food should be the consistency of: Regular Your liquids should be the consistency of: Regular/Thin Call your doctor if you observe: Fever of 101 or Higher Instructions: What Is Type 2 Diabetes?, How to Check Your Blood Sugar, Using Injected Insulin, Types of Insulin, Healthy Meals for Diabetes, Diabetes: Understanding Carbohydrates, Eating Out When You Have Diabetes, Exercise to Manage Your Blood Sugar, Diabetes: Keeping Feet Healthy, Diabetes: Inspecting Your Feet, Diabetes: Shopping for and Preparing Meals, Diabetes: Caring for Your Body, Diabetes: Sick-Day Plan, Diabetes: The Benefits of Exercise, Diabetes : Activity Tips, Diabetes: Understanding Carbohydrates, Fats, and Protein, A1C Allergies/Adverse Reactions: Allergies alcohol Allergy (Verified 08/10/17 18:21) Unknown red in the face and hives Medications to take at Discharge Insulin Aspart [Novolog Flexpen] 5 units SC TIDAC #30 flexpen 08/11/17 Insulin Detemir [Levemir (BKC)] 20 units SC DAILY #1 flexpen 08/11/17 Lancets/Blood Glucose Strips [Fora [id number] Strp-Lnct] 1 [facility] # 100 combo..pkg 08/11/17 [place], Insulin Disposable [Novofine Autocover 30G Needle] 1 [facility]. UD #1 box 08/11/17 Potassium Chloride [K-Dur] 40 meq PO BIDCM #8 tab 08/11/17 The following prescriptions were given: Insulin Aspart [Novolog Flexpen] 5 units SC TIDAC #30 flexpen Insulin Detemir [Levemir (BKC)] 20 units SC DAILY #1 flexpen [place], Insulin Disposable [Novofine Autocover 30G Needle] 1 [facility]. UD #1 box Potassium Chloride [K-Dur] 40 meq PO BIDCM #8 tab Lancets/Blood Glucose Strips [Fora [id number] Strp-Lnct] 1 [facility] # 100 combo..pkg Orders to be completed after discharge: Glucometer Location: None Selected Primary Care Physician: Care Physician,No Primary [Primary Care Provider] - Please Follow Up With: Mona Power NP-C - Endocrinology When: 2-3 weeks Proposed Discharge Date: 08/11/17
--- NOTE | 2017-08-11 16:03 | PCM.DC.SUM ---
Discharge Date and Diagnosis - Problem List Patient Problems: Active and Suspected Problems DKA (diabetic ketoacidoses) (Acute) Diabetes mellitus type 2 in obese (Acute) Poor peripheral vein access (Acute) Date of Admission: 08/10/17 Date of Discharge: 08/11/17 - Primary Discharge Diagnosis Active and Suspected Problems DKA (diabetic ketoacidoses) (Acute) Diabetes mellitus type 2 in obese (Acute) Poor peripheral vein access (Acute) Hospital Course and Treatment Imaging Results: Clinical Impression(s) from Imaging Studies Chest X-Ray 08/10/17 13:36 IMPRESSION: Normal x-ray examination of the chest. Electronically Signed: Raymundo Sanchez MD at 14:05 EST Tel [phone], Service support , Operations: None Procedures: - - Right femoral triple lumen catheter Summary of Care Provided: The patient is a 42 year old M Klean of nausea and vomiting. Patient had run out of his metformin and glimepiride about a week ago. Patient was in between doctors and had not been seeing a new doctor yet to have the medications prescribed but patient presented to the emergency room and was found to be in diabetic ketoacidosis. Venous blood gas showed a pH of 7.05. Gap was 16. Patient did have a hemoglobin A1c of 7.9. I discussed the patient and told him that patient had a very poorly controlled hemoglobin C of 11.9 that would not be due to the fact that he had not taking his medication just for the past week but this just reflects to me that his blood sugar has been very poorly controlled even while he was on his oral medication. I recommended that he be on insulin in particular basal insulin plus prandial insulin. Patient's once he taken off the insulin drip his blood sugars have remained in the high 100s-200 range. Which I think is reasonable right now given that he is new to insulin and this will require further management on an outpatient basis. The patient will be discharged with 20 units of Levemir +5 units of NovoLog with meals. Patient instructed to follow-up with BRYCE power, of endocrinology. Patient will also need primary care physician as well. Patient's auscultation was comp gated with hypokalemia. Patient has required for repeated doses of potassium. Patient be on potassium for 4 more days after discharge. Patient does not have a primary care doctor so I am not able to sign lab work for follow-up as outpatient at this time. Patient states that he is in the process of getting a primary care doctor even before this admission. [] Discharge Diet: 1800 Calorie Control Diet Discharge Activity: Return to Normal Activity Return to work on:: 08/14/17 Call your doctor if you observe: Fever of 101 or Higher Home Medications: Medications to take at Discharge Insulin Aspart [Novolog Flexpen] 5 units SC TIDAC #30 flexpen 08/11/17 Insulin Detemir [Levemir (BKC)] 20 units SC DAILY #1 flexpen 08/11/17 Lancets/Blood Glucose Strips [Fora [id number] Strp-Lnct] 1 [facility] TIDCM #100 combo..pkg 08/11/17 [place], Insulin Disposable [Novofine Autocover 30G Needle] 1 [facility]. UD #1 box 08/11/17 Potassium Chloride [K-Dur] 40 meq PO BIDCM #8 tab 08/11/17 Following Prescrptions Were Given to Patient: Insulin Aspart [Novolog Flexpen] 5 units SC TIDAC #30 flexpen Insulin Detemir [Levemir (BKC)] 20 units SC DAILY #1 flexpen [place], Insulin Disposable [facility]ine Autocover [facility]G [facility] Potassium Chloride [K-Dur] 40 meq PO BIDCM #8 tab Lancets/Blood Glucose Strips [Fora [id number] Strp-Lnct] 1 [facility] TIDCM #100 combo..pkg Other Amb Orders: Glucometer Location: None Selected Primary Care Physician: Care Physician,No Primary [Primary Care Provider] - Please Follow Up With: Mona Power NP-C - Endocrinology When: 2-3 weeks Patient Instructions: A1C, What Is Type 2 Diabetes?, How to Check Your Blood Sugar, Using Injected Insulin, Types of Insulin, Healthy Meals for Diabetes, Diabetes: Understanding Carbohydrates, Eating Out When You Have Diabetes, Exercise to Manage Your Blood Sugar, Diabetes: Keeping Feet Healthy, Diabetes: Inspecting Your Feet, Diabetes: Shopping for and Preparing Meals, Diabetes: Caring for Your Body, Diabetes: Sick-Day Plan, Diabetes: The Benefits of Exercise, Diabetes: Activity Tips, Diabetes: Understanding Carbohydrates, Fats, and Protein Disposition: Home Minutes spent on discharge:: 34 Patient Condition:: Good Meaningful Use Info Meaningful Use Diagnoses (Choose all that apply): None applicable Code Visit OBSV E&M: 32440 Observation care discharge
--- NOTE | 2017-08-11 16:08 | DS.PCM_ITS ---
Discharge Date and Diagnosis - Problem List Patient Problems: Active and Suspected Problems DKA (diabetic ketoacidoses) (Acute) Diabetes mellitus type 2 in obese (Acute) Poor peripheral vein access (Acute) Date of Admission: 08/10/17 Date of Discharge: 08/11/17 - Primary Discharge Diagnosis Active and Suspected Problems DKA (diabetic ketoacidoses) (Acute) Diabetes mellitus type 2 in obese (Acute) Poor peripheral vein access (Acute) Hospital Course and Treatment Imaging Results: Clinical Impression(s) from Imaging Studies Chest X-Ray 08/10/17 13:36 IMPRESSION: Normal x-ray examination of the chest. Electronically Signed: Raymundo Sanchez MD at 14:05 EST Tel [phone], Service support , Operations: None Procedures: - - Right femoral triple lumen catheter Summary of Care Provided: The patient is a 42 year old M Klean of nausea and vomiting. Patient had run out of his metformin and glimepiride about a week ago. Patient was in between doctors and had not been seeing a new doctor yet to have the medications prescribed but patient presented to the emergency room and was found to be in diabetic ketoacidosis. Venous blood gas showed a pH of 7.05. Gap was 16. Patient did have a hemoglobin A1c of 7.9. I discussed the patient and told him that patient had a very poorly controlled hemoglobin C of 11.9 that would not be due to the fact that he had not taking his medication just for the past week but this just reflects to me that his blood sugar has been very poorly controlled even while he was on his oral medication. I recommended that he be on insulin in particular basal insulin plus prandial insulin. Patient's once he taken off the insulin drip his blood sugars have remained in the high 100s- 200 range. Which I think is reasonable right now given that he is new to insulin and this will require further management on an outpatient basis. The patient will be discharged with 20 units of Levemir +5 units of NovoLog with meals. Patient instructed to follow-up with BRYCE power, of endocrinology. Patient will also need primary care physician as well. Patient's auscultation was comp gated with hypokalemia. Patient has required for repeated doses of potassium. Patient be on potassium for 4 more days after discharge. Patient does not have a primary care doctor so I am not able to sign lab work for follow -up as outpatient at this time. Patient states that he is in the process of getting a primary care doctor even before this admission. [] Discharge Diet: 1800 Calorie Control Diet Discharge Activity: Return to Normal Activity Return to work on:: 08/14/17 Call your doctor if you observe: Fever of 101 or Higher Home Medications: Medications to take at Discharge Insulin Aspart [Novolog Flexpen] 5 units SC TIDAC #30 flexpen 08/11/17 Insulin Detemir [Levemir (BKC)] 20 units SC DAILY #1 flexpen 08/11/17 Lancets/Blood Glucose Strips [Fora [id number] Strp-Lnct] 1 [facility] TIDCM # 100 combo..pkg 08/11/17 [place], Insulin Disposable [Novofine Autocover 30G Needle] 1 ea [facility]. UD #1 box 08/11/17 Potassium Chloride [K-Dur] 40 meq PO BIDCM #8 tab 08/11/17 Following Prescrptions Were Given to Patient: Insulin Aspart [Novolog Flexpen] 5 units SC TIDAC #30 flexpen Insulin Detemir [Levemir (BKC)] 20 units SC DAILY #1 flexpen [place], Insulin Disposable [Nov[facility]ine Autocover [facility]G [facility]le[facility] Potassium Chloride [K-Dur] 40 meq PO BIDCM #8 tab Lancets/Blood Glucose Strips [Fora [id number] Strp-Lnct] 1 [facility] TIDCM # 100 combo..pkg Other Amb Orders: Glucometer Location: None Selected Primary Care Physician: Care Physician,No Primary [Primary Care Provider] - Please Follow Up With: Mona Power NP-C - Endocrinology When: 2-3 weeks Patient Instructions: A1C, What Is Type 2 Diabetes?, How to Check Your Blood Sugar, Using Injected Insulin, Types of Insulin, Healthy Meals for Diabetes, Diabetes: Understanding Carbohydrates, Eating Out When You Have Diabetes, Exercise to Manage Your Blood Sugar, Diabetes: Keeping Feet Healthy, Diabetes: Inspecting Your Feet, Diabetes: Shopping for and Preparing Meals, Diabetes: Caring for Your Body, Diabetes: Sick-Day Plan, Diabetes: The Benefits of Exercise, Diabetes: Activity Tips, Diabetes: Understanding Carbohydrates, Fats, and Protein Disposition: Home Minutes spent on discharge:: 34 Patient Condition:: Good Meaningful Use Info Meaningful Use Diagnoses (Choose all that apply): None applicable Code Visit OBSV E&M: 24379 Observation care discharge
== END 2017-08-11 20:20 | disposition home or self-care (01) | DRG 638 ==
LOC: ED 14:27 → ICU 17:17
PROVIDERS: Admitting Provider Internal Medicine; Emergency Provider Emergency Medicine
DX: E11.10 Type 2 diabetes mellitus with ketoacidosis without coma (principal); E87.4 Mixed disorder of acid-base balance; Z68.41 Body mass index [BMI] 40.0-44.9, adult; E66.01 Morbid (severe) obesity due to excess calories; E87.6 Hypokalemia; Z79.4 Long term (current) use of insulin
CPT/HCPCS: 71045; 80048; 80076; 81001; 82009; 82803; 82962; 83036; 83735; 83930; 84100; 84484; 85025; 87641; 93005; 97802; 99285; J7030; J7040; A4216

== ENCOUNTER 2018-08-25 20:19 | Emergency (ER) | payer BC, SELFPAY ==
[2017-08-27 09:44] VITALS: BMI 41.1
[2018-08-25 20:20] VITALS: BP 138/82; PULSE 98; RESP 16; TEMP 36.7; O2SAT 100; BMI 45.1
[2018-08-25] MEDS: Fluorescein 1 MG STRIP 1 STRIP OPHTHALMIC (21:03)
[2018-08-25] MEDS: Tetracaine 0.5% Ophthalmic Bottle OPHTHALMIC (21:04)
--- NOTE | 2018-08-25 21:16 | ED.VISSUMM ---
- ER Visit Summary Date of Service: 08/25/18 Chief Complaint: Left eye pain History of Present Illness: The patient is a 43 M who sees Angélica leavitt. He reports that he was playing with his 7-year-old 2 days ago and got hit with their fingers to a closed left eye. Reports that he had mild pain then but that this resolved. However, he states that yesterday the eye started to get red. He had mild pain last night. Reports pain been much worse since 2:00 this afternoon. Reports that he is pain-free if he closes his eyes. However when his eyes are exposed to light he has pain is 7-10 severity. Patient denies any change in vision. He does not wear contacts. Physical Examination: Vitals: Stable. Afebrile. General: Well-nourished and well-developed. Left eye: There is no swelling of his eyelids. There is diffuse conjunctival injection with ciliary flush on the left. There is no corneal abrasion. No floor seen dye uptake. Extraocular motions are intact. He does have cell and flare in the anterior chamber. However there is no hyphema. He does have consensual photophobia. His pupil is reactive. Head: Normocephalic atraumatic. Neck: Supple, no lymphadenopathy. No JVD. Nontender. Cardiovascular: Regular rate and rhythm. No murmurs. Respiratory: No respiratory distress. Clear to auscultation bilaterally. Abdominal: Soft, nontender, nondistended, normal bowel sounds. No guarding, rebound, or peritoneal signs. Back: Nontender. Extremities: Nontender, no edema. Skin: Normal color, no rash. Neurologic: Alert and oriented ?3. Cranial nerves II through XII are intact. Normal strength and sensation. Psych: Normal affect. Test Results: Visual acuity is 20/30 on the right, 20/30 on the left, and 20/30 bilaterally. Emergency Department Course and Treatment: Patient had atropine drops placed which greatly relieved his pain. He will be discharged the atropine drops to use twice daily. Treatment Plan: Patient was discussed with Dr. Hills. He will be discharged instructed to follow-up with her in the office at 8 AM tomorrow. He is to avoid strenuous exercise until that time. Return to the emergency department for any worsening symptoms. Disposition: To home in improved and stable condition. Impression: 1. Traumatic iritis. This note was generated with [employer] software. It may contain incorrect words, spelling, and punctuation that were not noted in review of the chart prior to signing ED Disposition - Plan for ED Patient: Disposition: Home or Assisted Living Instructions: ED Iritis Referrals: Tierra Hills MD [STAFF PHYSICIAN] - 08/26/18 8:00 am Additional Instructions: No strenuous activity until cleared by Dr. Hills.
[2018-08-25] MEDS: Atropine Sulfate 1% 2 ml Bottle 1 DRP OPHTHALMIC (21:20)
[2018-08-25 21:24] VITALS: RESP 18
== END 2018-08-25 21:29 | disposition home or self-care (01) ==
LOC: ED 20:44
PROVIDERS: Emergency Provider Emergency Medicine; Family Provider Nurse Practitioner; PCP Nurse Practitioner
DX: H20.9 Unspecified iridocyclitis (principal); W50.0XXA Accidental hit or strike by another person, initial encounter; Y93.9 Activity, unspecified; Y92.9 Unspecified place or not applicable; E11.9 Type 2 diabetes mellitus without complications; Z79.84 Long term (current) use of oral hypoglycemic drugs; Z79.4 Long term (current) use of insulin
CPT/HCPCS: 99283

== ENCOUNTER 2019-10-16 05:07 | Emergency (ER) | payer MEDICAID, SELFPAY ==
[2019-10-16 05:08] VITALS: BP 188/97; PULSE 103; RESP 18; TEMP 36.8; O2SAT 97; BMI 44.4
[2019-10-16 05:27] VITALS: BP 175/88; PULSE 78; RESP 18; O2SAT 98
--- NOTE | 2019-10-16 05:28 | ED.DCSUM_ITS ---
- ER Visit Summary Date of Service: 10/16/19 Chief Complaint: [Dental pain] History of Present Illness: The patient is a 44 M [presents with dental pain that started this morning. Patient states he went to bed without much discomfort. He has had a broken right lower molar for several months and is waiting to have his insurance kicked in as he is just started a new job in July. Patient denies any fevers. He denies any trauma. Patient is a diabetic.] Physical Examination: [HEENT-PERRLA, EOMI. Cranial nerves II through XII grossly intact. TMs clear. Mucous membranes moist. No adenopathy. Dentition- patient has tenderness to palpation over the right lower second molar and he appears to have a cavity to the posterior aspect of the tooth adjacent to the third molar. No gingival erythema or abscess noted. No facial cellulitis. Cardiovascular-regular rate and rhythm without murmur or ectopy Lungs-clear to auscultation, chest wall stable without crepitus or subcu emphysema Abdomen-normoactive bowel sounds, soft, nontender, no rebound or rigidity, no peritoneal signs. Extremities-intact ?4, normal range of motion, normal pulses, atraumatic] Test Results: [None indicated] Emergency Department Course and Treatment: [Patient started on amoxicillin] Treatment Plan: [Patient will follow-up with dentist. Patient will be given a prescription for [place] and amoxicillin.] Disposition: [Discharged home in stable condition] Impression: [Dental pain secondary to dental carry] This note was generated with [employer] dictation software. It may contain incorrect words, spelling, and punctuation that were not noted in review of the chart prior to signing ED Disposition - Plan for ED Patient: Referrals: Angélica Reynolds, DIAGNOSTIC CARDIAC SONOGRAPHER-C [Primary Care Provider] -
[2019-10-16] MEDS: AMOXICILLIN 500 MG CAPSULE PO (05:30)
--- NOTE | 2019-10-16 05:33 | DCINST.ED_ITS ---
ED Disposition - Plan for ED Patient: Instructions: ED Tooth Pain, ED CAVITY Dental Prescriptions: Amoxicillin 500 mg PO TID #30 tab Prescription Printed Hydrocodone Bitart/Apap 5-325 [[place] 5MG-325MG] 1 tab PO Q4H PRN PRN 2 Days #10 tab PRN Reason: Pain Prescription Printed Referrals: Angélica Reynolds, METAL NUMERICAL TOOL PROGRAMMER-C [Primary Care Provider] - Additional Instructions: see a dentist
--- NOTE | 2019-10-16 05:33 | ED.DEP ---
ED Disposition - Plan for ED Patient: Instructions: ED Tooth Pain, ED CAVITY Dental Prescriptions: Amoxicillin 500 mg PO TID #30 tab Prescription Printed Hydrocodone Bitart/Apap 5-325 [[place] 5MG-325MG] 1 tab PO Q4H PRN PRN 2 Days #10 tab PRN Reason: Pain Prescription Printed Referrals: Angélica Reynolds, RIM FIRE PRIMING OPERATOR-C [Primary Care Provider] - Additional Instructions: see a dentist
--- NOTE | 2019-10-16 06:00 | ED.RN ---
PHARMACY UNABLE TO FILL PRESCRIPTION. DR RAINES NOTIFIED. 1 [place] ORDERED
[2019-10-16] MEDS: HYDROcodone Bitartrate/Apap 5/325 Tablet PO (06:10)
== END 2019-10-16 06:13 | disposition home or self-care (01) ==
LOC: ED 05:38
PROVIDERS: Emergency Provider Emergency Medicine
DX: K08.89 Other specified disorders of teeth and supporting structures (principal); K02.9 Dental caries, unspecified; E11.9 Type 2 diabetes mellitus without complications; Z79.4 Long term (current) use of insulin
CPT/HCPCS: 99283

== ENCOUNTER → 2021-07-08 15:01 | Outpatient (CLI) | payer MEDICAID, SELFPAY ==
[2021-07-08 16:20] LABS: Absolute Lymphocyte Count 1.71 X10^3/uL (0.83-4.51); Absolute Neutrophil Count 3.6 X10^3/uL (2.0-7.7); Basophil# 0.05 X10^3/uL; Basophil% 0.8 % (0-1); Eosinophil# 0.19 X10^3/uL; Eosinophils% 3.1 % (0-5); Hematocrit 43.6 % (40-54); Hemoglobin 14.6 g/dL (13.0-16.5); Lymphocyte # 1.71 X10^3/ul (0.83-4.51); Lymphocyte % 27.8 % (19-41); Mean Corp Hgb Conc 33.5 g/dL (32-36); Mean Corpuscular Volume 80.7 fL (80-94); Monocyte# 0.46 X10^3/uL; Monocyte% 7.5 % (0-10); NRBC Flagged by Analyzer 0 % (0-5); Neutrophil # 3.63 X10^3/uL (2.7-7.7); Neutrophil % 58.9 % (47-70); Platelet Count 201 K/mm3 (150-450); RBC Distribution Width SD 37.2 fl (35.1-43.9); White Blood Count 6.2 K/mm3 (4.4-11.0)
[2021-07-08 17:04] LABS: ALB/GLOB Ratio 0.9 RATIO (0.9-2.4); AST(SGOT) 22 U/L (15-37); Alanine Aminotransfer ALT/SGPT 39 U/L (16-61); Albumin, Serum 3.7 g/dL (3.2-5.0); Alkaline Phosphatase 103 U/L (45-117); Anion Gap 12 (5-15); BUN 14 mg/dL (7-18); BUN/Creat Ratio 15.1 RATIO (10-20); Calcium,Total 9.4 mg/dL (8.5-10.1); Chloride 93 mmol/L (98-107); Creatinine, Serum 0.92 mg/dL (0.70-1.30); EST Glomerular Filtration Rate 94 mL/min (>60); Est Glom Filt Rate - Afr Amer 114 mL/min (>60); Globulin 4.2 g/dL (2.2-4.2); Glucose 307 mg/dL (74-106); Protein, Total 7.9 g/dL (6.4-8.2); Sodium Level 131 mmol/L (136-145)
[2021-07-08 17:13] LABS: Hemoglobin A1c 12.4 % (3.8-5.6)
== END ==
PROVIDERS: Visit Provider Nurse Practitioner Adult Health
DX: E11.9 Type 2 diabetes mellitus without complications (principal); I10 Essential (primary) hypertension
CPT/HCPCS: 36415; 80053; 83036; 85025